=== PATIENT | female | born 1990 | race Caucasian/White ===

== ENCOUNTER 2020-11-17 04:22 | Outpatient (CLI) | payer MEDICAID ==
[~2020-11-17] VITALS: Ht 160 cm; Wt 62.7 kg
[2020-11-17] MEDS ORDERED: TUMS750C22 PO (05:46)
[2020-11-17] MEDS ORDERED: PRENTAB9 PO (05:46)
[2020-11-17 07:00] VITALS: BP 101/55
[2020-11-17 08:01] VITALS: BP 86/49
[2020-11-17 08:07] LABS: HEMOGLOBIN 10.3 g/dl (12.0-15.5); MEAN CORPUSCULAR HEMOGLOBIN 31.6 pg (27.0-33.0); MEAN CORPUSCULAR HGB CONC 34.3 g/dl (32.0-36.5); PLATELET COUNT, AUTOMATED 220 10^3/uL (150-450); RED BLOOD COUNT 3.26 10^6/uL (4.00-5.40); WHITE BLOOD COUNT 6.9 10^3/uL (4.0-10.0)
[2020-11-17 09:01] VITALS: BP 92/53
[2020-11-17 09:17] VITALS: BP 90/51
[2020-11-17] MEDS ORDERED: RHOGAM 300 MCG (1500 IU) INJ (J2790) IM ONE (09:30)
[2020-11-17 10:29] LABS: CHLAMYDIA DNA AMPLIFICATION NEGATIVE (NEGATIVE); GC DNA AMPLIFICATION NEGATIVE (NEGATIVE)
--- NOTE | 2020-11-17 10:42 | IPNPDOC ---
Obstetrical Progress Note Date of Service Nov 17, 2020 Subjective 30 yo female, uncertain gestational age, presents to triage with 1 day of vaginal bleeding. It is enough to partially stain a pad. No clots. No pain. No recent intercourse. She has had no care. Objective Vital Signs Date Time Temp Pulse Resp B/P (MAP) Pulse Ox O2 Delivery O2 Flow Rate FiO2 11/17/20 09:17 72 18 90/51 (64) 11/17/20 07:00 97.8 Assessment Variability: Moderate Accelerations: Positive Decelerations: None Heart Rate Tracing: Category I Tocometer Contractions: No Sterile Vaginal Examination Dilation: None Cervical Consistency: Firm Cervical Position: Posterior Assessment and Plan Age: 30 : 2 Term: 1 Pre-term: 0 Abortions: 0 Livin Status: Reassuring Additional Comments 30 yo at 29 6/7 weeks by ultrasound today, with vaginal bleeding. Pt received Rhogam for O negative status panel of labs drawn. Ultrasound reviewed Pt plans to establish care with Dr. Hyatt Likely cause of bleeding is placental source Activity restrictions JEREMI ALY MD Nov 17, 2020 10:42
[2020-11-17 10:46] LABS: AMPHETAMINES LEVEL URINE POSITIVE (NEGATIVE); BARBITURATES URINE NEGATIVE (NEGATIVE); BENZODIAZEPINES URINE NEGATIVE (NEGATIVE); CANNABINOIDS URINE NEGATIVE (NEGATIVE); COCAINE METABOLITE URINE POSITIVE (NEGATIVE); METHADONE URINE NEGATIVE (NEGATIVE); OPIATES URINE POSITIVE (NEGATIVE); PHENCYCLIDINE URINE NEGATIVE (NEGATIVE)
[2020-11-17 12:44] LABS: HEPATITIS B SURFACE ANTIGEN NEGATIVE (NEGATIVE)
--- NOTE | 2020-11-19 08:41 | REP ---
INDICATION: R/O PLACENTA PREVIA, ANATOMY SCAN, EFW, SANDY. Repeat dictation. Preliminary report is provided at the time of the exam by solange ANDERS. COMPARISON: None. TECHNIQUE: Transabdominal obstetric sonography. FINDINGS: Scanning through the gravid uterus demonstrates a viable single intrauterine gestation in cephalic lie. motion is observed and heart rate is recorded at 138 beats per minute. A anterior placenta is seen, grade 1, without evidence of placenta previa. Inferior margin of the placenta is 2.5 cm from the internal cervical os on trans abdominal imaging. Amniotic fluid is subjectively normal. Closed cervical length is measured at 3.8 cm transabdominally. No extrauterine abnormality is observed. Amniotic fluid is subjectively normal. Four-chamber heart and ventricular outflow tract views are less than optimally achieved due to position and advanced gestational age. Limited views of the orbits and arms were achieved. Following additional anatomic structures are identified felt to be unremarkable: Intracranial anatomy, spine, left-sided stomach, kidneys and bladder, three-vessel cord, abdominal wall cord insertion, face and lips, and lower extremities.. Biometry chart: BPD 70.1 mm, 28 weeks 2 days Abdominal circumference 254.8 mm, 29 weeks 5 days Humeral length 50.8 mm, 29 weeks 6 days Head circumference 274.7 mm, 30 weeks 1 day Femur length 54.1 mm, 28 weeks 5 days Cerebellar diameter 35.9 mm, 32 weeks 3 days Estimated weight 1361 g, SANDY normal 12.1 cm SD ratio in the umbilical cord artery by Doppler, 3.9, normal IMPRESSION: Viable single intrauterine gestation at 29 weeks 2 days by today's composite sonographic criteria. FATMATA by today's sonography January 31, 2021. No complication identified. <Electronically signed by Jeffery Smith > 11/19/20 0805
[2020-11-19 11:07] LABS: HEPATITIS C VIRUS ABY INDEX 0.1 INDEX (<0.8)
== END 2020-11-17 10:46 | disposition home or self-care (01) ==
LOC: M LDO 04:22
PROVIDERS: ATTEND Obstetrics & Gynecology
DX: O26.853 Spotting complicating pregnancy, third trimester (principal); Z3A.29 29 weeks gestation of pregnancy; Z88.1 Allergy status to other antibiotic agents; Z88.2 Allergy status to sulfonamides
CPT/HCPCS: 36415; 59025; 76811; 76820; 80307; 85027; 86762; 86780; 86803; 86850; 86900; 86901; 87086; 87340; 87491; 87591; 87806; 96372; J2790

== ENCOUNTER 2020-12-11 04:46 | Inpatient (IN) | payer OTHER ==
[2020-12-11] VITALS (49 sets, daily range): BP systolic 96–142; BP diastolic 52–84
[~2020-12-11] VITALS: Ht 160 cm; Wt 62.0 kg
[~2020-12-11 04:46] MED LIST: PRENTAB9 PO; TUMS750C22 PO
[2020-12-11 05:38] LABS: MEAN CORPUSCULAR HEMOGLOBIN 30.2 pg (27.0-33.0); MEAN CORPUSCULAR HGB CONC 33.9 g/dl (32.0-36.5); MEAN CORPUSCULAR VOLUME 89.3 fl (80.0-96.0); PLATELET COUNT, AUTOMATED 280 10^3/uL (150-450); RED BLOOD COUNT 2.05 10^6/uL (4.00-5.40); WHITE BLOOD COUNT 7.9 10^3/uL (4.0-10.0)
[2020-12-11 05:42] LABS: HEMATOCRIT 18.3 % (36.0-47.0); HEMOGLOBIN 6.2 g/dl (12.0-15.5)
[2020-12-11 05:48] LABS: INR 0.98; PROTHROMBIN TIME 13.2 SECONDS (12.5-14.3)
[2020-12-11] MEDS ORDERED: LACTATED RINGER'S 1000 ML IV STA (05:58)
[2020-12-11] MEDS ORDERED: PENICILLIN G POTASSIUM IV 5 MU in D5W MINI-BAG PLUS 100 ML IV STA (05:58)
--- NOTE | 2020-12-11 06:00 | HPEPDOC ---
Obstetrical History & Physical General Date of Admission 12/11/2020 Primary Care Physician: TAO TAFOYA CNM History of Present Illness Sofi is a 30 y/o at 32.5 weeks by 2nd trimester ultrasound on 11/17/2020. She was seen in the hospital on 11/17/21 for vaginal bleeding, no f urther care. Presents to L&D today with c/o vaginal bleeding that started at 10pm, that "poured out" of her while sitting on the toilet. Reports she was unable to get off the toilet for 2hours due to contractions being painful. Reports contractions now 6/10 on pain scale, abdominal cramping and low back aching. Denied drug use, when informed of last positive drug screen on 11/17/20, she reported taking Adderall. Admitted later to taking medication that was last prescribed, as she did not take all of it when it was previously prescribed, "to help my anxiety". Last primary visit for Strattera distribution was 06/08/2019 and was only given a 3 month supply at that time per previous notes. She is an unreliable historian. Chief Complaint: Vaginal Bleeding Information Provided By: Patient Age: 21 : 7 Term: 1 Pre-term: 0 Abortions: 6 Livin Care Care: Other (1 visit to the hospital on 11/17/20) Dating Final EDC: Jan 31, 2021 Final EDC by: 2nd trimester (US) (29.2wk gestational age) EGA at Admission: 32.5 Antepartum Course Diagnos(e)s Tested positive for opiates and amphetamines on 11/17/20 Height (inches): 63 Past Medical History Past Obstetrical History : Past Obstetrical History: Primgravida Date of Delivery: Jan 06, 2011 Type of Delivery: Spontaneous Vaginal Del. 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 deficit disorder (Reports taking Adderall, last primary care visit June 08, 2019 for distribution of Adderall.) * Smoker: current smoker (3-4 cigarettes per day per patient) Alcohol: Denies Drugs: denies (tested positive for opiates and amphetamines on 11/17/20) Imunizations Tdap status: needs Influenza Status: needs Allergies Coded Allergies: Sulfa (Sulfonamide Antibiotics) (Verified Allergy, Severe, THROAT SWELLING, 11/17/20) tramadol (Verified Allergy, Unknown, SEVERE N/V, 11/17/20) Medications Scheduled No.137/Iron/Folic Acd ( Vitamin Tablet) 1 Each Tablet, 1 TAB PO DAILY Miscellaneous Medications Calcium Carbonate (Tums) 300 Mg Tab.chew, 750 MG PO Physical Examination Physical Examination GENERAL: Alert and oriented times three. ABDOMEN: Gravid and non-tender to touch. FETUS: Is vertex (VTX) by sterile vaginal examination (SVE), fetus is vertex (VTX) by bedside U/S. HEART RATE: Regular rate and rhythm. LUNGS: Clear to auscultation (CTA) bilaterally. EXTREMITIES: +2 pitting edema bilaterally. No clonus. Deep tendon reflexes (DTRs) + 2. SPECULUM: Large clots and bleeding removed from vaginal vault, cervix appears open, no fluid noted from cervical os. SVE: 4/80/-3, posterior, BBOW. Vital Signs/I&O Vital Signs Label Value Date Time Pulse 103 12/11/20 0452 Blood Pressure Assessment 142/70 (94) 12/11/20 0452 Source Automatic Cuff (NIBP) Laboratory Data [facility] Item Value Date Time Prothrombin Time 13.2 SECONDS 12/11/20 0525 Prothromb Time International Ratio 0.98 12/11/20 0525 Fibrinogen 355 MG/DL 12/11/20 0525 Item Value Date Time Creatinine 0.44 MG/DL L 12/11/20 0525 Glomerular Filtration Rate > 60.0 12/11/20 0525 Uric Acid 4.8 MG/DL 12/11/20 0525 Total Bilirubin 0.2 MG/DL 12/11/20 0525 Aspartate Amino Transf (AST/SGOT) 10 U/L 12/11/20 0525 Alanine Aminotransferase (ALT/SGPT) 11 U/L L 12/11/20 0525 Lactate Dehydrogenase 128 U/L 12/11/20 0525 Laboratory Tests 2 12/11/20 05:25: NAME: SOFI BENAVIDES DATE OF : 1990 BUSINESS NUMBER: [id number] AGE: 30 SEX: F REPORT #: [id number] ROOM: [facility] TECHNOLOGIST: [facility] DOCTOR: TAO TAFOYA CNM Ordered for Date&Time: 12/11/20516 cc: [~ rep ct ivnm] Service Date&Time: 12/11/20 06 EXAMINATION REQUESTED: Obs. Limited, SANDY US REASON FOR PATIENT VISIT: BLEEDING,?ROM, LABOR CHECK REASON FOR EXAMINATION: evaluate placenta for heavy vaginal bleeding. PROCEDURE INFORMATION: Exam: US , Limited Exam date and time: 12/11/2020 6:11 AM Age: 30 years old Clinical indication: Lmp or gestational age (in weeks): 32w 5d; Antepartum complications; Bleeding; ; Additional info: Evaluate placenta for heavy vaginal bleeding. TECHNIQUE: Imaging protocol: Real-time ultrasound of the maternal uterus with image documentation. Exam focused on the clinical indication. COMPARISON: US OBS SINGEL GEST 11/17/2020 4:56 AM FINDINGS: Gestation: Single viable intrauterine gestation. heart rate: heart rate is 147 bpm. Presentation: Cephalic presentation. Placenta: Anterior placenta. Amniotic fluid index: Amniotic fluid index is 11.7 cm. MATERNAL: Cervix: Cervical length is 4 cm. IMPRESSION: Single viable intrauterine gestation in cephalic presentation. Anterior placenta. No clear evidence of abruption. Electronically signed by: Mathieu Allen On 12/11/2020 06:50:25 AM CBC/BMP Item Value Date Time White Blood Count 7.9 10^3/uL 12/11/20 0525 Red Blood Count 2.05 10^6/uL L 12/11/20 0525 Hemoglobin 6.2 g/dl *L 12/11/20 0525 Hematocrit 18.3 % L 12/11/20 0525 Mean Corpuscular Volume 89.3 fl 12/11/20 0525 Mean Corpuscular Hemoglobin 30.2 pg 12/11/20 0525 Mean Corpuscular Hemoglobin Concent 33.9 g/dl 12/11/20 0525 Red Cell Distribution Width 11.9 % 12/11/20 0525 Platelet Count 280 10^3/uL 12/11/20 0525 Urine Culture: No Growth Pertinent Laboratoy Data Blood Type: O- RBC Antibody Screen: Negative HIV: Negative Hepatitis B: Negative Hepatitis C: Negative Rapid Plasma Reagin: Nonreactive Rubella: Immune Varicella: Nonreactive Chlamydia/Gonorrhea: Negative Group B Streptococcus: Unknown (Collected today) Anatomy Ultrasound Ultrasound Date: Nov 17, 2020 Placenta Location: Anterior Normal Anatomy: Yes Placenta Previa: No Steroid Therapy Steroid Therapy: Yes Date #1: Dec 11, 2020 Reason Vaginal bleeding at 32.5wks Vaginal Examination Dilation: 4 cm Effacement: 80% Station: -3 Cervical Consistency: Soft Cervical Position: Posterior Presentation: Cephalic presentation (on SVE and by bedside U/S) Assessment Heart Rate (FHR): 155 Variability: Moderate Accelerations: None Decelerations: None, Variable (when first arrived to unit) Tocometer Contractions: Yes Frequency: regular, other (2-3min.) Duration: greater than 60 seconds Strength: palpated as mild, resting tone palp/soft Multi-drug resistant Organism: No history of MDRO Assessment/Plan Assessment IUP at 32.5weeks Pre-Term Labor Vaginal bleeding, potential placental abruption Hx. of Drug abuse Category 2 FHR Tracing initially, now Category 1 FHT GBS unknown Plan Plan of care collaborated with Dr. Alarcon. Admit to Labor and Delivery. Informed consent for Blood Transfusion. Diet: Clear liquids. Group B Streptococcus (GBS) unknown, collected today. Labs and intravenous (IV) per unit protocol. Ultrasound for placenta, presentation, SANDY, well being. Counseled on risks to delivered at this time discussed. Hemodialysis Technician notified of patient in department. Betamethasone 12mg IM x1 dose now, then in 24hrs. Penicillin G 5 million units IV now, then 2.5 million units every 4 hours. Transfuse 2 units RBCs. Anesthesia consultation for epidural at patient's request. Lactated Ringers (LR): Bolus 1000 mL, then at 125 mL/hr. Abruption labs, preeclamptic labs, and urine drug screen ordered. Anticipate normal spontaneous delivery (). C-S as appropriate. TAO TAFOYA CNM Dec 11, 2020 06:00
[2020-12-11 06:05] LABS: ALT/SGPT 11 U/L (12-78); BILIRUBIN,TOTAL 0.2 MG/DL (0.2-1.0); CREATININE FOR GFR 0.44 MG/DL (0.55-1.30); GLOMERULAR FILTRATION RATE > 60.0 (>60); LDH LACTATE DEHYDROGENASE 128 U/L (84-246); URIC ACID 4.8 MG/DL (2.6-6.0)
[2020-12-11] MEDS: BETAMETHASONE SOLUSPAN 6MG/ML 5ML VIAL (J0702 PER 3MG) IM SCH (06:17)
[2020-12-11] MEDS: LR 1,000 ML IV SCH ×2 (06:17→15:28)
--- NOTE | 2020-12-11 06:50 | REPVR ---
PROCEDURE INFORMATION: Exam: US , Limited Exam date and time: 12/11/2020 6:11 AM Age: 30 years old Clinical indication: Lmp or gestational age (in weeks): 32w 5d; Antepartum complications; Bleeding; ; Additional info: Evaluate placenta for heavy vaginal bleeding. TECHNIQUE: Imaging protocol: Real-time ultrasound of the maternal uterus with image documentation. Exam focused on the clinical indication. COMPARISON: US OBS SINGEL GEST 11/17/2020 4:56 AM FINDINGS: Gestation: Single viable intrauterine gestation. heart rate: heart rate is 147 bpm. Presentation: Cephalic presentation. Placenta: Anterior placenta. Amniotic fluid index: Amniotic fluid index is 11.7 cm. MATERNAL: Cervix: Cervical length is 4 cm. IMPRESSION: Single viable intrauterine gestation in cephalic presentation. Anterior placenta. No clear evidence of abruption. Electronically signed by: Mathieu Allen On 12/11/2020 06:50:25 AM
[2020-12-11 08:53] LABS: AMPHETAMINES LEVEL URINE POSITIVE (NEGATIVE); BARBITURATES URINE NEGATIVE (NEGATIVE); BENZODIAZEPINES URINE NEGATIVE (NEGATIVE); CANNABINOIDS URINE POSITIVE (NEGATIVE); COCAINE METABOLITE URINE POSITIVE (NEGATIVE); METHADONE URINE NEGATIVE (NEGATIVE); OPIATES URINE POSITIVE (NEGATIVE); PHENCYCLIDINE URINE NEGATIVE (NEGATIVE)
[2020-12-11 08:58] LABS: TOTAL PROTEIN,RANDOM URINE 8.6 MG/DL (0.0-12.0)
[2020-12-11] MEDS: PENICILLIN G POTASSIUM IV 2.5 MU in IV 1 EA IV SCH ×4 (10:05→22:09)
[2020-12-11] MEDS ORDERED: AZITHROMYCIN 250MG TABLET PO ONE (10:45)
[2020-12-11 11:59] LABS: HEMOGLOBIN 7.2 g/dl (12.0-15.5); MEAN CORPUSCULAR HEMOGLOBIN 29.6 pg (27.0-33.0); MEAN CORPUSCULAR HGB CONC 34.3 g/dl (32.0-36.5); MEAN CORPUSCULAR VOLUME 86.4 fl (80.0-96.0); PLATELET COUNT, AUTOMATED 219 10^3/uL (150-450); RED BLOOD COUNT 2.43 10^6/uL (4.00-5.40); WHITE BLOOD COUNT 5.6 10^3/uL (4.0-10.0)
[2020-12-11] MEDS ORDERED: CALCIUM CARBONATE 500 MG CHEW U/D PO PRN (17:45)
[2020-12-11] MEDS: ACETAMINOPHEN 500 MG TAB PO PRN (18:31)
--- NOTE | 2020-12-11 18:56 | IPNPDOC ---
Text Note Date of Service The patient was seen on 12/11/20. NOTE Intrapartum Note Zohreh is a 30yo at 32w5d by 2nd trimester u/s on 11/17, which was her only prior visit (for vaginal bleeding- at which time she had UDS positive but d enied drug use), admitted for labor vs placental abruption when she presented early this morning for very heavy vaginal bleeding. She noted "pouring blood into the toilet bowl overnight" which is consistent with her admission H/H of 6.2/18.3 for which she has been transfused 4 units of pRBCs. Over the course of the day she has had scant bleeding, until passing a large clot recently, but no active obvious bleeding after. Formal TAUS showed no evidence of placental abruption on admission and coags are normal, KB is 0.0000. Pre-E workup was negative with urine prot:creat 0.066. FHRT has been intermittently Cat I-Cat II, currently Cat I. Patient was baljinder frequently on admission, but they have spaced out. She had a pool of clear fluid noted during the day, presumed spontaneous PPROM. I performed SCE and she was unchanged from earlier exam, /-1, posterior. On admission she was started on PCN and given a dose of 12mg IM betamethasone. GBS swab obtained. Patient was extremely somnolent through most of the day, hard to rouse- presumably high on drugs given her positive drug screen for: opiates, amphetamines, cocaine and cannabinoids. When the patient awoke late in the af ternoon, I discussed the results with her and her only denial was of the amphetamines stating it must be "from Adderall". I had a long talk with the patient and her boyfriend (uncertain paternity) regarding her diagnosis and plan of care, namely betamethasone with prolongation of if and maternal status remain reassuring. They asked for their bags to be brought up and agreed to a search since they would be brought up the the nurses- they quickly agreed to the search but a cube of black material was discovered and confiscated, presumed to be heroin. Per RNs, patient stated "my grandma packed my bag, so I'll have to ask her if those were ashes from her cigarette." At one point during the day she threatened to go AMA, but seemed appeased once she was given a popsicle and written for regular diet. Vitals wnl, afebrile Gen: somnolent until late afternoon, then sitting up in bed comfortably Abdomen: soft, gravid, NTTP Extremities: 2+ pitting edema of BLE up to knees SCE: 4/80/-2 Labs and imaging as noted above, cephalic presentation Plan for continued observation with CEFM on L&D Betamethasone 12mg IM repeated 24hr apart Continue IV PCN If patient starts to feel more frequent/painful contractions or rectal pressure, will re-check SCE Plan to repeat CBC at 2200 tonight for post-transfusion assessment Social Work consult placed Would move toward delivery for or maternal indications Safe to proceed Suzanne Alarcon MD VS,Hipolito, I+O VS, Hipolito I+O Laboratory Tests 12/11/20 05:25 12/11/20 11:44 Vital Signs Date Time Temp Pulse Resp B/P (MAP) Pulse Ox O2 Delivery O2 Flow Rate FiO2 12/11/20 17:55 98.5 90 18 118/70 Room Air 12/11/20 17:15 99 Suzanne Alarcon MD Dec 11, 2020 18:37
[2020-12-11 22:22] LABS: HEMATOCRIT 27.4 % (36.0-47.0); HEMOGLOBIN 9.1 g/dl (12.0-15.5); MEAN CORPUSCULAR HEMOGLOBIN 28.9 pg (27.0-33.0); MEAN CORPUSCULAR HGB CONC 33.2 g/dl (32.0-36.5); PLATELET COUNT, AUTOMATED 234 10^3/uL (150-450); RED BLOOD COUNT 3.15 10^6/uL (4.00-5.40); WHITE BLOOD COUNT 7.3 10^3/uL (4.0-10.0)
[2020-12-11 22:33] LABS: PROTHROMBIN TIME 13.3 SECONDS (12.5-14.3)
[2020-12-12] VITALS (17 sets, daily range): BP systolic 106–141; BP diastolic 55–85
[2020-12-12] MEDS: LR 1,000 ML IV SCH ×3 (02:17→16:51)
[2020-12-12] MEDS: PENICILLIN G POTASSIUM IV 2.5 MU in IV 1 EA IV SCH ×4 (02:21→14:41)
[2020-12-12] MEDS: BETAMETHASONE SOLUSPAN 6MG/ML 5ML VIAL (J0702 PER 3MG) IM SCH (06:07)
[2020-12-12 10:35] LABS: HEMATOCRIT 23.5 % (36.0-47.0); HEMOGLOBIN 7.9 g/dl (12.0-15.5); MEAN CORPUSCULAR HEMOGLOBIN 29.2 pg (27.0-33.0); MEAN CORPUSCULAR HGB CONC 33.6 g/dl (32.0-36.5); MEAN CORPUSCULAR VOLUME 86.7 fl (80.0-96.0); PLATELET COUNT, AUTOMATED 204 10^3/uL (150-450); RED BLOOD COUNT 2.71 10^6/uL (4.00-5.40)
[2020-12-12] MEDS: ACETAMINOPHEN 500 MG TAB PO PRN (14:42)
--- NOTE | 2020-12-12 15:02 | REP ---
INDICATION: TVUS r/o velementous cord, vasa previa,SANDY, Vaginal bleeding. COMPARISON: Comparison obstetric sonography 11 December 2020 and 17 November 2020.. TECHNIQUE: Limited obstetric sonography. Transvaginal and transabdominal imaging. FINDINGS: Scanning demonstrates a single living intrauterine gestation in a cephalic lie. An anterior left lateral placenta is seen without evidence of previa. There is no evidence of succenturiate lobe or velamentous insertion. Placental grade is 2. heart rate is recorded at 128 beats per minute. Amniotic fluid is subjectively normal. SANDY is normal at 13.3 cm. Transvaginal visualization of the cervix shows closed cervical length of 2.9 cm. Color flow and pulse Doppler interrogation demonstrates numerous maternal venous channels throughout the upper cervix and across the region of the internal cervical os. No vessels are identified to suggest a alexis Vasa previa. The maternal veins at the level of the internal cervical os dilate with Valsalva. There is no evidence of cervical funneling. IMPRESSION: Numerous fairly large maternal veins are seen throughout the region of the lower uterine segment and upper cervix, crossing the internal cervical os and dilating with Valsalva. No vessels are observed in this region. Placenta is anterior without evidence of previa. <Electronically signed by Jeffery Smith > 12/12/20 3125
--- NOTE | 2020-12-13 09:04 | DSES ---
DISCHARGE SUMMARY DATE OF ADMISSION: 12/11/2020 DATE OF DISCHARGE: 12/12/2020 DISCHARGE DIAGNOSIS: Third trimester vaginal bleeding, stable, no bleeding in the last 24 hours. 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 She was also seen on 11/17/2020 for a report of vaginal bleeding. She has had no care. Her due date is based on a second trimester ultrasound. She is currently 32-6/7 weeks' gestation. She underwent lab testing and was found to have a hemoglobin of 6 and she did receive 4 units of red blood cells. Hemoglobin did rise to 9. Today it is 7.9, platelets 204. She underwent an ultrasound today to rule out velamentous cord insertion and a vasa previa. The ultrasound did not show either of those anomalies. Upon arrival, her cervix was examined by admitting provider and was found to be 4 cm dilated, 80% effaced with bulging bag. She does have a long history of drug use. She has had urine toxicologies with returning positive screen for cannabis, methamphetamine, cocaine and opiates. She denies taking any medications. She denies taking any illicit street drugs. She does have open Child Protective Services (CPS) cases. She is requesting discharge to home. Per consultation with Dr. Hyatt, march discharge to home. I did stress to the patient that she is to return to the hospital for any bleeding. She reports that she has a care appointment scheduled for next week, December 20, 2020. I reviewed discharge instructions to include access to care, kick counts, danger signs and symptoms, labor signs and symptoms. OBJECTIVE: Blood pressure is stable at 125/85, heart rate 140, moderate variability, positive accelerations. No decelerations. There are no contractions. There is no bleeding reported. PLAN: Discharge to home. Follow up for her scheduled appointment. Again, I reviewed discharge instructions that include kick counts, access to care, danger signs. She was instructed pelvic rest, nothing in the vagina, no douching, no sex toys, no intercourse and no orgasms.
== END 2020-12-12 18:36 | disposition home or self-care (01) | DRG 566 ==
LOC: M LDO 04:46 → M LDI 05:46
PROVIDERS: ADMIT Advanced Practice Midwife; ATTEND Advanced Practice Midwife
DX: O46.93 Antepartum hemorrhage, unspecified, third trimester (principal); Z3A.32 32 weeks gestation of pregnancy; O99.333 Smoking (tobacco) complicating pregnancy, third trimester; F17.210 Nicotine dependence, cigarettes, uncomplicated; O99.323 Drug use complicating pregnancy, third trimester

== ENCOUNTER 2021-01-02 22:04 | Inpatient (IN) | payer OTHER ==
[~2021-01-02] VITALS: Ht 157.5 cm; Wt 63.0 kg
[2021-01-02] MEDS ORDERED: LACTATED RINGER'S 1000 ML IV STA (22:37)
[2021-01-02 22:49] LABS: HEMATOCRIT 29.5 % (36.0-47.0); HEMOGLOBIN 9.1 g/dl (12.0-15.5); MEAN CORPUSCULAR HEMOGLOBIN 26.1 pg (27.0-33.0); MEAN CORPUSCULAR HGB CONC 30.8 g/dl (32.0-36.5); MEAN CORPUSCULAR VOLUME 84.8 fl (80.0-96.0); PLATELET COUNT, AUTOMATED 279 10^3/uL (150-450); RED BLOOD COUNT 3.48 10^6/uL (4.00-5.40); WHITE BLOOD COUNT 13.9 10^3/uL (4.0-10.0)
[2021-01-02] MEDS ORDERED: FENTANYL 2MCG/ML ROPIVACAINE 0.2% IN 0.9% NACL 100ML IVBAG As Ordered ONE (23:25)
[2021-01-03] VITALS (15 sets, daily range): BP systolic 98–127; BP diastolic 51–67
[2021-01-03] MEDS ORDERED: EPIDURAL COMMENT XX SCH (01:00)
[2021-01-03] MEDS ORDERED: EPIDURAL/PCA KEYS XX PRN (01:00)
[2021-01-03] MEDS ORDERED: ONDANSETRON 4MG/2ML VIAL IV PRN ×3 (01:00→04:45)
[2021-01-03] MEDS ORDERED: NALOXONE INJ 0.4MG/1ML VIAL (J2310 PER 1MG) IV PRN ×3 (01:00→04:03)
[2021-01-03] MEDS ORDERED: REFRIGERATOR IV KEYS XX PRN (01:00)
[2021-01-03] MEDS ORDERED: diphenhydrAMINE 50MG/ML VIAL (J1200) IV PRN ×2 (01:00→04:03)
[2021-01-03] MEDS ORDERED: ePHEDrine SULFATE 25 MG/5 ML(5MG/ML) SYRINGE IV PRN (01:00)
[2021-01-03] MEDS ORDERED: LACTATED RINGER'S 1000 ML IV PRN (01:00)
[2021-01-03] MEDS ORDERED: FENTANYL/ROPIVACAINE/NACL BAG 100 ML EPIDURAL SCH (01:00)
[2021-01-03] MEDS ORDERED: OXYTOCIN 30 UNITS IN 0.9% NaCl 500ML IV BAG (J2590) As Ordered ONE ×2 (01:17→04:41)
[2021-01-03] MEDS ORDERED: LR 1,000 ML IV SCH ×3 (01:41→04:45)
[2021-01-03] MEDS ORDERED: OXYTOCIN DRIP 30 UNITS in IV 1 EA IV SCH ×2 (01:45→04:39)
[2021-01-03 02:11] LABS: AMPHETAMINES URINE REFLEX NEGATIVE (NEGATIVE); BARBITURATES URINE REFLEX NEGATIVE (NEGATIVE); BENZODIAZEPINES URINE REFLEX NEGATIVE (NEGATIVE); CANNABINOIDS URINE REFLEX NEGATIVE (NEGATIVE); METHADONE URINE REFLEX NEGATIVE (NEGATIVE); PHENCYCLIDINE URINE REFLEX NEGATIVE (NEGATIVE)
[2021-01-03] MEDS ORDERED: ceFAZolin 2 GM/D5W 50 ML IV BAG (J0690 PER 500MG) As Ordered ONE (03:12)
[2021-01-03] MEDS ORDERED: BICITRA 30ML SOLN UDC As Ordered ONE (03:12)
[2021-01-03] MEDS ORDERED: OXYTOCIN INJ 10 UNITS/ML VIAL (J2590) As Ordered ONE (03:13)
[2021-01-03] MEDS ORDERED: ONDANSETRON 4MG/2ML VIAL As Ordered ONE (03:13)
[2021-01-03] MEDS ORDERED: dexameTHASONE 4 MG/ML 1ML VIAL (J1100 PER 1MG) As Ordered ONE (03:13)
[2021-01-03] MEDS ORDERED: AZITHROMYCIN INJ 500MG VIAL (J0456 PER 500MG) As Ordered ONE (03:13)
[2021-01-03] MEDS ORDERED: LIDOCAINE PRES-FREE 2% 10ML AMP As Ordered ONE (03:13)
[2021-01-03] MEDS ORDERED: KETOROLAC 60MG 2ML VIAL As Ordered ONE (03:13)
[2021-01-03] MEDS ORDERED: MORPHINE PRES-FREE INJ 10 MG/10 ML VIAL (J2274) As Ordered ONE (03:14)
[2021-01-03] MEDS ORDERED: ceFAZolin SOD 2 GM in IV 1 EA IV ONE (03:15)
[2021-01-03] MEDS ORDERED: BICITRA 30ML SOLN UDC PO ONE (03:15)
[2021-01-03] MEDS ORDERED: AZITHROMYCIN INJ 500 MG, VIAL MATE ADAPTER 1 EACH in D5W 250 ML IV ONE (03:15)
[2021-01-03] MEDS ORDERED: METOCLOPRAMIDE INJ 10MG/2ML VIAL (J2765 PER 1) As Ordered ONE (03:53)
[2021-01-03 04:02] LABS: CORD GAS ABE V -6.6; CORD GAS HCO3 V 20.4 MEQ/L; CORD GAS O2 SAT V 57.4 %; CORD GAS PCO2 V 45.8 mmHg; CORD GAS PH V 7.267 UNITS; CORD GAS PO2 V 23.4 mmHg; CORD GAS SBC V 18.2 MEQ/L; CORD GAS TCO2 V 21.8 MEQ/L
[2021-01-03 04:03] LABS: CORD GAS ABE A -3.6; CORD GAS O2 SAT A 31.4 %; CORD GAS PCO2 A 58.9 mmHg; CORD GAS PH A 7.245 UNITS; CORD GAS PO2 A 14.1 mmHg; CORD GAS SBC A 19.8 MEQ/L; CORD GAS TCO2 A 26.8 MEQ/L
[2021-01-03] MEDS ORDERED: METOCLOPRAMIDE INJ 10MG/2ML VIAL (J2765 PER 1) IV PRN (04:03)
[2021-01-03] MEDS ORDERED: NALBUPHINE HCL 10 MG/ML AMP (J2300) IV PRN (04:03)
[2021-01-03] MEDS ORDERED: ACETAMINOPHEN 500 MG TAB PO PRN (04:45)
[2021-01-03] MEDS ORDERED: MEASLES,MUMPS,RUBELLA VACCINE INJ (MMR-II) (90707) SC SCH (04:45)
[2021-01-03] MEDS ORDERED: fentaNYL 100 MCG/2 ML INJECTION (J3010) IV PRN (04:45)
[2021-01-03] MEDS ORDERED: ONDANSETRON 4 MG TAB PO PRN (04:45)
[2021-01-03] MEDS ORDERED: KETOROLAC 30 MG/ML 1ML VIAL IV PRN (04:45)
[2021-01-03] MEDS ORDERED: PERCOCET 5MG/325MG TAB PO PRN (04:45)
[2021-01-03] MEDS ORDERED: RHOGAM 300 MCG (1500 IU) INJ (J2790) IM SCH (04:45)
--- NOTE | 2021-01-03 04:58 | ROOPDOC ---
[facility] Report Of Operation Report of Operation DATE OF PROCEDURE: 01/03/21 PREPROCEDURE DIAGNOSES: 36+0 weeks, placental abruption, non-reassuring heart rate tracing POSTPROCEDURE DIAGNOSES: same PROCEDURE: Primary low transverse section SURGEON: Gustavo Musa DO FACOG STUDIO ENGINEER: Duane Tan CNM (Essential role in retraction, extraction, and closure of all tissue layers) ANESTHESIA: Epidural ESTIMATED BLOOD LOSS: 500 mL. (800mL preoperatively) IV FLUIDS: 1200 mL LR URINE OUTPUT: 125 mL COMPLICATIONS: None. PREOPERATIVE ANTIBIOTICS: Ancef 2g IV x 1, Azithromycin 500mg IV. COMPLICATIONS: none DATA: Apgars 8 and 9. Birthweight 2490 g, 5 lbs 8 oz. See [employer] for cord gases SPECIMENS: none PRIMARY INDICATION FOR : Non-reassuring heart rate tracing. (Placental abruption) DESCRIPTION OF PROCEDURE: The patient was counseled on the risks, benefits, indications and alternatives of the procedure. Informed consent was obtained. She was taken to the operating room with IV running and placed on the operating table in the dorsal supine position with a leftward tilt. Regional anesthesia was found to be adequate. Sequential compression devices were placed on the lower extremities. A Gray catheter was placed under sterile conditions. She was prepared and draped in normal sterile fashion. A time out was performed per protocol. Regional anesthesia was again found to be adequate. A Pfannenstiel skin incision was made with the 10 blade. The 10 blade was used to dissect down to the level of the rectus sheath fascia. The rectus sheath pressure was incised midline and this was extended bilaterally with Holbrook scissors , and manual stretch. The rectus muscle bellies were dissected off the rectus sheath fascia superiorly and inferiorly using both sharp and blunt dissection. The midline was identified. The peritoneum was identified and entered digitally. The peritoneal opening was extended with manual stretch. The Mobius retractor was placed. The vesicouterine peritoneum was dissected with Metzenbaum scissors to create the bladder flap. A low transverse uterine incision was made with the 10 blade. This was extended with manual stretch. The amniotic sac was punctured, and clear fluid was noted. The baby delivered through the hysterotomy without difficulty. The cord was doubly clamped and cut, and the baby was handed off to awaiting care. data shown above. Cord blood obtained. Cord gases were obtained. The placenta was removed manually. The intrauterine cavity was cleared of all clot and debris. The hysterotomy was closed with 0 Vicryl in running locked fashion. This was reinforced with a second imbricating layer using 0 Vicryl in running fashion. Excellent hemostasis of the hysterotomy was noted. The pelvis was irrigated and the fluid suctioned. The Mobius retractor was removed. The peritoneum was closed with 3-0 Vicryl running fashion. The rectus muscle bellies were reapproximated with interrupted stitches using 3-0 Vicryl. The rectus muscles bellies were hemostatic. The rectus sheath fascia was closed with 0 Vicryl running fashion. The subcutaneous layer was irrigated and the fluid suctioned. Small bleeding vessels were cauterized with Bovie. Excellent hemostasis was noted. The subcutaneous layer was reapproximated with 3-0 Vicryl running fashion. Skin was closed with 3-0 Monocryl in subcuticular fashion. An Optifoam bandage was placed over the closed incision. Sponge, needle and instrument counts were correct per protocol throughout the procedure. The patient tolerated the entire procedure very well. She was transferred to the P ACU in stable condition. DO OBINNA Biswas JONATHAN R. DO Jan 03, 2021 04:58
[2021-01-03] MEDS ORDERED: IBUP80TA PO (04:59)
[2021-01-03] MEDS ORDERED: DOK1CAP7 PO (04:59)
[2021-01-03] MEDS ORDERED: PERCOCET PO (04:59)
[2021-01-03 05:19] LABS: COCAINE METABOLITE URINE REFLE PENDING CONFIRMATION (NEGATIVE)
[2021-01-03 05:20] LABS: OPIATES URINE REFLEX PENDING CONFIRMATION (NEGATIVE)
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
[2021-01-03] MEDS: PERCOCET 5MG/325MG TAB PO PRN ×3 (07:50→20:51)
[2021-01-03 07:57] LABS: BASO % 0.2 % (0.0-1.0); LYMPH # 0.7 10^3/uL (1.5-5.0); LYMPH % 4.3 % (24.0-44.0); MEAN CORPUSCULAR HEMOGLOBIN 26.3 pg (27.0-33.0); MEAN CORPUSCULAR HGB CONC 31.1 g/dl (32.0-36.5); MEAN CORPUSCULAR VOLUME 84.8 fl (80.0-96.0); MONO # 0.8 10^3/uL (0.0-0.8); MONO % 4.7 % (0.0-5.0); NEUTROPHILS # 14.6 10^3/uL (1.5-8.5); NEUTROPHILS % 89.9 % (36.0-66.0); PLATELET COUNT, AUTOMATED 223 10^3/uL (150-450); RED BLOOD COUNT 2.43 10^6/uL (4.00-5.40); WHITE BLOOD COUNT 16.2 10^3/uL (4.0-10.0)
[2021-01-03 08:01] LABS: HEMATOCRIT 20.6 % (36.0-47.0); HEMOGLOBIN 6.4 g/dl (12.0-15.5)
[2021-01-03] MEDS ORDERED: ACETAMINOPHEN TAB 650MG DOSE (2X325MG) PO ONE (09:00)
[2021-01-03] MEDS ORDERED: diphenhydrAMINE 25MG CAP PO ONE (09:00)
[2021-01-03] MEDS: DOCUSATE SODIUM 100MG CAPSULE PO SCH ×2 (09:17→21:26)
[2021-01-03] MEDS: PRENATAL VITAMINS CHEWABLE TABLET PO SCH (09:18)
[2021-01-03] MEDS: KETOROLAC 30 MG/ML 1ML VIAL IV SCH ×3 (10:08→21:27)
[2021-01-03 20:22] LABS: HEMATOCRIT 25.7 % (36.0-47.0); HEMOGLOBIN 8.3 g/dl (12.0-15.5); MEAN CORPUSCULAR HEMOGLOBIN 27.5 pg (27.0-33.0); MEAN CORPUSCULAR HGB CONC 32.3 g/dl (32.0-36.5); MEAN CORPUSCULAR VOLUME 85.1 fl (80.0-96.0); PLATELET COUNT, AUTOMATED 272 10^3/uL (150-450); RED BLOOD COUNT 3.02 10^6/uL (4.00-5.40); WHITE BLOOD COUNT 18.1 10^3/uL (4.0-10.0)
[2021-01-03] MEDS: NICOTINE 14 MG/24 HR TRANSDERMAL TD SCH (20:48)
[2021-01-04 01:54] VITALS: BP 114/56
[2021-01-04] MEDS: PERCOCET 5MG/325MG TAB PO PRN ×4 (02:58→19:36)
[2021-01-04 05:41] VITALS: BP 122/58
[2021-01-04] MEDS ORDERED: IBUPROFEN 800 MG TAB PO SCH (06:00)
[2021-01-04 06:57] LABS: HEMATOCRIT 24.5 % (36.0-47.0); HEMOGLOBIN 8.2 g/dl (12.0-15.5); MEAN CORPUSCULAR HEMOGLOBIN 28.6 pg (27.0-33.0); MEAN CORPUSCULAR HGB CONC 33.5 g/dl (32.0-36.5); MEAN CORPUSCULAR VOLUME 85.4 fl (80.0-96.0); PLATELET COUNT, AUTOMATED 285 10^3/uL (150-450); RED BLOOD COUNT 2.87 10^6/uL (4.00-5.40); WHITE BLOOD COUNT 14.3 10^3/uL (4.0-10.0)
[2021-01-04] MEDS ORDERED: BOOSTRIX/ADACEL VACCINE (DIPHTH/PERTUSS/ACELL/TETANUS) 0.5ML SYR IM ONE (09:00)
[2021-01-04] MEDS: PRENATAL VITAMINS CHEWABLE TABLET PO SCH (09:00)
[2021-01-04] MEDS: DOCUSATE SODIUM 100MG CAPSULE PO SCH ×2 (09:52→20:51)
[2021-01-04] MEDS: NICOTINE 14 MG/24 HR TRANSDERMAL TD SCH (09:53)
[2021-01-04 10:00] VITALS: BP 110/67
--- NOTE | 2021-01-04 10:14 | IPNPDOC ---
Text Note Date of Service The patient was seen on 01/04/21. NOTE Postop Reports chronic back pain. "I have been taking left over Erik's and oxycodone from my previous Dr." Tolerating regular diet. Voiding, passing flatus VSS, afebrile, normotensive Moves well from chair to bed with minimal guarding Fundus firm, NT Dressing dry and intact. Reports pain is lower left back primarily A: PO #1, Chronic pain, hx narcotic use P: Scheduled ibuprofen changed to Q 6 hrs. Percocet 2 changed to Q 4hrs prn. Kpad provided Will provide scheduled stool softener and lidocaine patches Consider discharge in am VS,Fishbone, I+O VS, Fishbone, I+O Laboratory Tests 01/03/21 20:02 01/04/21 06:29 Vital Signs Date Time Temp Pulse Resp B/P (MAP) Pulse Ox O2 Delivery O2 Flow Rate FiO2 01/04/21 08:23 18 01/04/21 05:41 97.3 90 122/58 (79) 99 Room Air I&O- Last 24 Hours up to 6 AM 01/04/21 06:00 Intake Total 2311 ml Output Total 975 ml Balance 1336 ml Jenn Thompson CNM Jan 04, 2021 10:14
[2021-01-04] MEDS ORDERED: MOM 30ML SUSPENSION UDC PO PRN (10:30)
[2021-01-04] MEDS ORDERED: LIDOCAINE 5% (LIDODERM) PATCH TD SCH ×3 (10:30→21:00)
[2021-01-04] MEDS: IBUPROFEN 800 MG TAB PO SCH ×2 (12:00→18:38)
[2021-01-04 14:00] VITALS: BP 122/56
[2021-01-04 22:00] VITALS: BP 127/73
[2021-01-05] MEDS: IBUPROFEN 800 MG TAB PO SCH ×4 (00:37→18:23)
[2021-01-05 02:00] VITALS: BP 138/63
[2021-01-05] MEDS: PERCOCET 5MG/325MG TAB PO PRN ×3 (02:06→12:53)
[2021-01-05 06:00] VITALS: BP 101/53
--- NOTE | 2021-01-05 07:12 | IPNPDOC ---
Text Note Date of Service The patient was seen on 01/05/21. NOTE PO Reports chronic pain is better controlled with lidocaine patch and Kpad. OOB. Voiding, passing flatus. VSS, afebrile,normotensive Fundus firm, NT Dressing dry, intact Lochia rubra scant without odor PO #2 Would like to consider discharge this pm if NICU can care for infant Considering BTL VS,Fishbone, I+O VS, Fishbone, I+O Vital Signs Date Time Temp Pulse Resp B/P (MAP) Pulse Ox O2 Delivery O2 Flow Rate FiO2 01/05/21 06:40 16 Room Air 01/05/21 06:00 97.9 76 101/53 (49) 98 Jenn Thompson CNM Jan 05, 2021 07:12
[2021-01-05] MEDS: PRENATAL VITAMINS CHEWABLE TABLET PO SCH ×2 (08:36→09:00)
[2021-01-05] MEDS: DOCUSATE SODIUM 100MG CAPSULE PO SCH (08:36)
[2021-01-05] MEDS: NICOTINE 14 MG/24 HR TRANSDERMAL TD SCH (09:00)
[2021-01-05] MEDS ORDERED: **NOTE PATIENT COMMENT** MISC XX SCH ×2 (09:00)
[2021-01-05 10:00] VITALS: BP 111/70
[2021-01-05] MEDS ORDERED: DOK1CAP7 PO (17:50)
[2021-01-05] MEDS ORDERED: PERCOCET PO (17:50)
[2021-01-05] MEDS ORDERED: IBUP80TA PO (17:50)
--- NOTE | 2021-01-05 18:01 | DS.PDOC ---
Discharge Summary General Date of Admission Jan 02, 2021 at 22:32 Date of Discharge 01/05/21 Discharge Summary DATE OF ADMISSION: 01/02/21 DATE OF DISCHARGE: 01/05/21 ADMISSION DIAGNOSIS: 35+6 weeks, placental abruption, anemia DISCHARGE DIAGNOSIS: Same; delivered. DISCHARGE SUMMARY: The patient was admitted at 35+6 weeks gestation with a diagnosis of acute on chronic placental abruption and anemia. She had completed a course of corticosteroids due to this condition prior to her admission. Her labor course was complicated by a nonreassuring heart rate tracing, which prompted an urgent section at 36+0 weeks gestation in the early AM of 01/03/21. The section delivery was uncomplicated. Her postoperative course was uncomplicated as well. She received 2 units of prbc on postoperative day 1 to treat her anemia, and exhibited an appropriate rise in her levels after her transfusion (see [employer]). On 01/05/21, she was meeting all discharge criteria. Of note, patient has tested positive for illicit drug use during this . CPS/PFS is aware and has met with her. A plan has been documented by PFS. The baby remained an inpatient on the date of her hospital discharge. PHYSICAL EXAMINATION ON DATE OF DISCHARGE: Normotensive. Normal heart rate. Afebrile. HEART: Regular rate and rhythm. No murmurs, gallops, or rubs. LUNGS: Clear to auscultation bilaterally. ABDOMEN: Soft, nontender, nondistended. Incision bandage clean and dry. EXTREMITIES: Nonedematous, nontender. She was meeting all discharge criteria on 01/05/21, and patient has highly desirous of hospital discharge. We reviewed routine fever, infectious, pain, and bleeding precautions. She is to followup in 2 weeks for incision check. Her postoperative medications are Percocet, Motrin, and Colace. Vital Signs/I&Os Vital Signs Date Time Temp Pulse Resp B/P (MAP) Pulse Ox O2 Delivery O2 Flow Rate FiO2 01/05/21 13:44 16 01/05/21 10:00 97.1 85 111/70 (84) 99 Room Air Discharge Medications Scheduled Docusate Sodium (Dok) 100 Mg Capsule, 100 MG PO BID Ibuprofen (Ibuprofen) 800 Mg Tablet, 800 MG PO Q6H No.137/Iron/Folic Acd ( Vitamin Tablet) 1 Each Tablet, 1 TAB PO DAILY, (Reported) Scheduled PRN Oxycodone/Acetaminophen (Oxycodone-Acetaminophen 5-325) 1 Each Tablet, 1 TAB PO Q4H PRN for PAIN Miscellaneous Medications Calcium Carbonate (Tums) 300 Mg Tab.chew, 750 MG PO, (Reported) Allergies Coded Allergies: Sulfa (Sulfonamide Antibiotics) (Verified Allergy, Severe, THROAT SWELLING, 11/17/20) tramadol (Verified Allergy, Unknown, SEVERE N/V, 11/17/20) HAYDE HERNANDEZ DO Jan 05, 2021 18:01
[2021-01-06] MEDS ORDERED: BOOSTRIX/ADACEL VACCINE (DIPHTH/PERTUSS/ACELL/TETANUS) 0.5ML SYR IM ONE (09:00)
[2021-01-08 17:07] LABS: Cocaine Positive (.); Codeine Negative (Cutoff=200); GC Benzoylecgon 180 ng/mL (Cutoff=150); GC Morphine 1760 ng/mL (Cutoff=200); Morphine Positive (.); Opiates Positive (.)
== END 2021-01-05 18:40 | disposition home or self-care (01) | DRG 540 ==
LOC: M LDO 22:04 → M LDI 22:32 → M OBS 01-03 05:45
PROVIDERS: ADMIT Advanced Practice Midwife; ATTEND Obstetrics & Gynecology
PROC: 10D00Z1 Extraction of Products of Conception, Low, Open Approach (ICD-10-PCS; principal; 2021-01-03 03:00)
PROC: 30233N1 Transfusion of Nonautologous Red Blood Cells into Peripheral Vein, Percutaneous Approach (ICD-10-PCS; 2021-01-04)
DX: O45.93 Premature separation of placenta, unspecified, third trimester (principal); Z3A.35 35 weeks gestation of pregnancy; Z37.0 Single live birth; O99.02 Anemia complicating childbirth; D64.9 Anemia, unspecified; O76 Abnormality in fetal heart rate and rhythm complicating labor and delivery

== ENCOUNTER → 2022-02-03 | Outpatient (REF) | payer MEDICAID, OTHER ==
[~2022-02-03] MED LIST changes: +DOK1CAP4 PO; +IBUP80TA PO; +PERCOCET PO
== END ==
LOC: M SFHCCLAY 11:12
PROVIDERS: ATTEND Nurse Practitioner Family
DX: F90.9 Attention-deficit hyperactivity disorder, unspecified type (principal)

== ENCOUNTER 2024-01-29 02:48 | Emergency (ER) | payer MEDICAID, OTHER ==
[~2024-01-29] VITALS: Ht 160 cm; Wt 68.2 kg
[2024-01-29] MEDS: NS 1,000 ML IV ONE (03:32)
[2024-01-29 03:36] LABS: VENOUS BASE EXCESS -2.4 (-2.0-2.0); VENOUS O2 SATURATION 58.4 % (60.0-80.0); VENOUS PARTIAL PRESSURE CO2 42.2 mmHg (38.0-50.0); VENOUS PH 7.355 UNITS (7.330-7.430); VENOUS STANDARD HCO3 21.4 MMOL/L; VENOUS TOTAL CO2 24.3 MMOL/L (24.0-28.0)
[2024-01-29 03:42] LABS: BASO % 0.4 % (0.0-1.0); EOS # 0.1 10^3/uL (0.0-0.5); EOS % 0.7 % (0.0-3.0); HEMATOCRIT 43.9 % (36.0-47.0); HEMOGLOBIN 15.8 g/dl (12.0-15.5); LYMPH # 1.1 10^3/uL (1.5-5.0); LYMPH % 10.8 % (24.0-44.0); MEAN CORPUSCULAR HEMOGLOBIN 30.7 pg (27.0-33.0); MEAN CORPUSCULAR VOLUME 85.2 fl (80.0-96.0); MONO # 0.7 10^3/uL (0.0-0.8); MONO % 6.4 % (2.0-8.0); NEUTROPHILS # 8.5 10^3/uL (1.5-8.5); NEUTROPHILS % 81.4 % (36.0-66.0); PLATELET COUNT, AUTOMATED 256 10^3/uL (150-450); RED BLOOD COUNT 5.15 10^6/uL (4.00-5.40); WHITE BLOOD COUNT 10.5 10^3/uL (4.0-10.0)
[2024-01-29 04:05] LABS: ETHYL ALCOHOL (ETHANOL) 0.007 % (0.000-0.010)
[2024-01-29 04:07] LABS: HCG, SERUM QUALITATIVE NEGATIVE (NEGATIVE); SALICYLATE LEVEL < 3.0 MG/DL (<30)
[2024-01-29 04:09] LABS: THYROID STIMULATING HORMONE 0.289 uIU/ML (0.55-4.78)
[2024-01-29 04:12] LABS: ALBUMIN 3.8 G/DL (3.2-5.2); ALKALINE PHOSPHATASE 89 U/L (46-116); ALT/SGPT 16 U/L (7.0-40); AST/SGOT 33 U/L (<34); BILIRUBIN,DIRECT 0.2 MG/DL (<0.4); BILIRUBIN,TOTAL 0.8 MG/DL (0.3-1.2); BLOOD UREA NITROGEN 10 MG/DL (9-23); CALCIUM LEVEL 9.4 MG/DL (8.5-10.1); CARBON DIOXIDE LEVEL 23 MMOL/L (20-31); CHLORIDE LEVEL 106 MMOL/L (98-107); CPK CREATINE PHOSPHOKINASE 90 U/L (34-145); CREATININE FOR GFR 0.52 MG/DL (0.55-1.30); GLOMERULAR FILTRATION RATE > 60.0 (>60); GLUCOSE, FASTING 109 MG/DL (60-100); POTASSIUM SERUM 4.6 MMOL/L (3.5-5.1); SODIUM LEVEL 137 MMOL/L (136-145); TOTAL PROTEIN 7.1 G/DL (5.7-8.2)
[2024-01-29 04:15] LABS: BARBITURATES URINE NEGATIVE (NEGATIVE); BENZODIAZEPINES URINE NEGATIVE (NEGATIVE); CANNABINOIDS URINE NEGATIVE (NEGATIVE); COCAINE METABOLITE URINE NEGATIVE (NEGATIVE); METHADONE URINE NEGATIVE (NEGATIVE); PHENCYCLIDINE URINE NEGATIVE (NEGATIVE)
[2024-01-29 04:17] LABS: AMPHETAMINES LEVEL URINE POSITIVE (NEGATIVE); OPIATES URINE POSITIVE (NEGATIVE)
[2024-01-29 04:22] LABS: RSV AMPLIFICATION NEGATIVE (NEGATIVE)
[2024-01-29 05:54] VITALS: BP 115/69; TEMP 97.8; O2SAT 99
== END 2024-01-29 06:14 | disposition home or self-care (01) ==
LOC: M ED 02:48
DX: F19.10 Other psychoactive substance abuse, uncomplicated (principal); K86.1 Other chronic pancreatitis; F17.200 Nicotine dependence, unspecified, uncomplicated; Z88.2 Allergy status to sulfonamides; Z88.8 Allergy status to other drugs, medicaments and biological substances

== ENCOUNTER 2024-03-15 20:04 | Emergency (ER) | payer OTHER ==
[~2024-03-15] VITALS: Ht 160 cm; Wt 65.9 kg
[2024-03-15] MEDS ORDERED: NARC1SPR (20:43)
[2024-03-15] MEDS ORDERED: IBUP200C25 PO (20:43)
[2024-03-15] MEDS ORDERED: FLON1SPR NARES (20:43)
[2024-03-15] MEDS ORDERED: SUBO8MIS SL (20:43)
[2024-03-15 21:02] LABS: BASO % 0.5 % (0.0-1.0); EOS # 0.1 10^3/uL (0.0-0.5); EOS % 1.3 % (0.0-3.0); HEMATOCRIT 42.5 % (36.0-47.0); HEMOGLOBIN 14.3 g/dl (12.0-15.5); LYMPH % 35.8 % (24.0-44.0); MEAN CORPUSCULAR HEMOGLOBIN 31.2 pg (27.0-33.0); MEAN CORPUSCULAR HGB CONC 33.6 g/dl (32.0-36.5); MEAN CORPUSCULAR VOLUME 92.6 fl (80.0-96.0); MONO # 0.6 10^3/uL (0.0-0.8); MONO % 11.3 % (2.0-8.0); NEUTROPHILS # 2.8 10^3/uL (1.5-8.5); NEUTROPHILS % 50.7 % (36.0-66.0); PLATELET COUNT, AUTOMATED 236 10^3/uL (150-450); RED BLOOD COUNT 4.59 10^6/uL (4.00-5.40); WHITE BLOOD COUNT 5.5 10^3/uL (4.0-10.0)
[2024-03-15] MEDS: NS 1,000 ML IV SCH (21:19)
[2024-03-15 21:32] LABS: CK-MB VALUE MASS < 1.0 NG/ML (<3.6); LIPASE 25 U/L (12-53)
[2024-03-15 21:34] LABS: ALBUMIN 4.2 G/DL (3.2-5.2); ALKALINE PHOSPHATASE 83 U/L (46-116); ALT/SGPT 42 U/L (7.0-40); AST/SGOT 27 U/L (<34); BILIRUBIN,DIRECT 0.1 MG/DL (<0.4); BILIRUBIN,TOTAL 0.3 MG/DL (0.3-1.2); BLOOD UREA NITROGEN 16 MG/DL (9-23); CALCIUM LEVEL 9.5 MG/DL (8.5-10.1); CARBON DIOXIDE LEVEL 29 MMOL/L (20-31); CHLORIDE LEVEL 104 MMOL/L (98-107); CPK CREATINE PHOSPHOKINASE 61 U/L (34-145); CREATININE FOR GFR 0.52 MG/DL (0.55-1.30); GLOMERULAR FILTRATION RATE > 60.0 (>60); GLUCOSE, FASTING 89 MG/DL (60-100); MB/CK RELATIVE INDEX 1.63 (< OR =4); POTASSIUM SERUM 4.1 MMOL/L (3.5-5.1); SODIUM LEVEL 141 MMOL/L (136-145); TOTAL PROTEIN 7.1 G/DL (5.7-8.2)
[2024-03-15 21:43] LABS: HCG, SERUM QUALITATIVE NEGATIVE (NEGATIVE)
[2024-03-15] MEDS ORDERED: ISOVUE-370 76% 100ML VIAL As Ordered ONE (21:44)
[2024-03-15 22:55] LABS: GC DNA AMPLIFICATION NEGATIVE (NEGATIVE)
[2024-03-15] MEDS: DOXYCYCLINE HYCLATE 100MG TABLET PO ONE (23:30)
[2024-03-15] MEDS ORDERED: DOXY-443 PO (23:34)
[2024-03-15] MEDS: IBUPROFEN 600MG TAB PO ONE (23:35)
[2024-03-16] VITALS: BP 119/79; TEMP 97.4; O2SAT 97
== END 2024-03-16 00:05 | disposition home or self-care (01) ==
LOC: M ED 20:04
DX: R10.9 Unspecified abdominal pain (principal); A74.9 Chlamydial infection, unspecified; Z88.2 Allergy status to sulfonamides; Z88.8 Allergy status to other drugs, medicaments and biological substances; Z79.899 Other long term (current) drug therapy; Z79.1 Long term (current) use of non-steroidal anti-inflammatories (NSAID)
CPT/HCPCS: 74177; 76830; 76856; 80048; 80076; 81001; 82550; 82553; 83605; 83690; 84484; 84703; 85025; 87088; 87210; 87810; 87850; 93041; 93976; 96360; 96361; 99285; Q9967